=== PATIENT | male | born 1940 | race Caucasian/White ===

== ENCOUNTER 2016-04-14 14:25 | Inpatient (IN) | payer OTHER ==
[~2016-04-14] VITALS: Ht 175.3 cm; Wt 102.3 kg
--- NOTE | ~2016-04-14 | HC ---
[facility] [place] [address] CONSULTATION Name: FER TAN Room #: 435-P [facility] IN ..#: [id number] Admission: 04/14/16 Attend Phys: Reyes Vera MD Discharge: 04/21/16 Date of : 42 Report #: [id number] THIS REPORT FOR: //name// CC: Reyes Vera DATE OF SERVICE: 04/19/2016 HISTORY OF PRESENT ILLNESS: The patient is a 76-year-old white male who was admitted with progressive respiratory failure, noted to have an exacerbation of rheumatoid arthritis. He is very hypoxic with any activity. Pulmonary medicine is closely involved. He is noted to have persistent infiltrates bilaterally and is thought to have rheumatoid arthritis-associated inflammatory lung disease. He has problems with hypoxic respiratory failure. He is on high-dose corticosteroids. There was discussion of using Remicade. He has limited tolerance for activity, and we are seeing him in rehabilitation medicine consultation. PAST MEDICAL HISTORY AND PAST SURGICAL HISTORY: Includes a long history of rheumatoid arthritis. 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 Grissom. A history of colon cancer, status post partial colectomy 1999. He has had bilateral total knee replacements. HABITS: Tobacco a pack per day for 10 years, quit more than 20 years ago. ALLERGIES: None. MEDICATIONS: Please see the full medication listing. 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 FAMILY HISTORY: Includes CVA in his father who has . SOCIAL HISTORY: He lives with his . House, there is one step in and then another eight steps to get up to where the bedroom and bathroom are. The notes it is a trilevel. He was a premorbid household ambulator, did not utilize gait aids. He was on nasal prong O2, approximately 3-4 liters prior to his admission. He was able to ambulate household distances and do his own ADLs. The is home much of the time, although she does work parttime around 13 hours per week doing some healthcare assistance out of the home. She is typically gone on . REVIEW OF SYSTEMS: Did not offer any current complaints of chest pain, shortness of breath or abdominal discomfort at rest. He notes significant increased shortness of breath with any activity. PHYSICAL EXAMINATION: GENERAL: A 76-year-old white male, no obvious distress. He is currently on [address] [place] [id number] CONSULTATION Name: FER TAN Room #: 435-P [facility] IN ..#: [id number] Admission: 04/14/16 Attend Phys: Reyes Vera MD Discharge: 04/21/16 Date of : 42 Report #: [id number] [id number] nasal cannula. VITAL SIGNS: Last recorded temperature 97.8, pulse 53, respirations 20 and blood pressure 147/68. He was alert, oriented and appropriate. HEENT: Appeared to be benign. NEUROLOGIC: He has functional range of motion of both upper extremities with strength probably a grade 4+/5. DTRs are trace to 1. Lower extremities, no focal calf swelling. Strength is grade 4+/5. Bilateral knee incisions are intact. He is contact guard for sit to stand. He could ambulate 8 feet contact guard 4-wheeled walker on 5 liters. ASSESSMENT: A 76-year-old white male with the following problem list: 1. 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 2. Jrwnn-fs-miicnet hypoxic respiratory failure, on 5 liters. 3. Diffuse pulmonary infiltrates. 4. Pulmonary hypertension. 5. Chronic history of rheumatoid arthritis. 6. History of colectomy. 7. Bilateral total knee replacements. PLAN: The patient's main limiting factor is his hypoxia with limited activity. Therapies are to continue working with him. Continuing with the systemic steroids. No discussion regarding possible Remicade. He certainly may be a candidate for an acute in-hospital inpatient rehabilitation stay to further improve his strength and endurance and to achieve a point where he can return back to the home setting. At this point, we will continue to follow along with you regarding his rehab therapy needs. <ELECTRONICALLY SIGNED> By: Dutch Ulloa MD 05/10/16 1605 1200 1605 Dutch Ulloa MD /nt
--- NOTE | ~2016-04-14 | EKG ---
[address] [place] [address] ELECTROCARDIOGRAM REPORT Name: FER TAN Room #: 435-P ADM IN M.R.#: [id number] Admission: 04/14/16 Attend Phys: Reyes Vera MD Discharge: Date of : 42 Report #: [id number] THIS REPORT FOR: //name// 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1940 Requested By: Izabel Darby Order Number: [id number] MD: Michael Sosa Measurements Intervals [place] Rate: 63 P: 4 [place]: 121 QRS: -52 QRSD: 100 T: -13 QT: 421 QTc: 431 Interpretive Statements Sinus rhythm Left ventricular hypertrophy Inferior infarct, old Anterior Q waves, possibly due to LVH Baseline wander in lead(s) III,aVF No previous ECG available for comparison Electronically Signed On 04-15-2016 11:12:02 MAT MAKER by Michael Sosa [email or web address] <ELECTRONICALLY SIGNED> By: Michael Sosa MD 04/15/16 1112 1429 1429 Michael Sosa MD /EPI
--- NOTE | ~2016-04-14 | H ---
[facility] [place] [address] HISTORY AND PHYSICAL Name: FER TAN Room #: 435-P [facility] IN M.R.#: [id number] Admission: 04/14/16 Attend Phys: Reyes Vera MD Discharge: 04/21/16 Date of : 42 Report #: [id number] THIS REPORT FOR: //name// CC: Reyes Vera DATE OF SERVICE: 04/14/2016 CHIEF COMPLAINT: Shortness of air. HISTORY OF PRESENT ILLNESS: The patient is a 76-year-old male well known to me with an underlying history of rheumatoid arthritis and rheumatoid lung disease who had been getting significantly worse in the past few weeks. Dr. Rodriguez had recommended he come to the hospital for evaluation of the progression of his pulmonary disease. The patient was more short of breath on the day of admission. PAST MEDICAL HISTORY: Significant for: 1. Rheumatoid arthritis. 2. Pulmonary fibrosis. 3. Coronary artery disease. 4. Hyperlipidemia. 5. DJD. MEDICATIONS: Include Xanax 0.5 p.r.n., Celebrex 200 mg b.i.d., Plaquenil 200 mg b.i.d., Acyclovir 400 mg a day, folic acid daily, metoprolol 50 mg a day, Proscar 5 mg a day, Zyrtec 10 mg a day, prednisone 20 mg t.i.d. and morphine 15 mg b.i.d. ALLERGIES: No known drug allergies. SOCIAL HISTORY: Nonsmoker, nondrinker and no recreational drugs. REVIEW OF SYSTEMS: CONSTITUTIONAL: No fever or chills. He is positive for the shortness of breath and malaise. HEENT: No headaches or visual changes. CHEST: Shortness of breath and cough. GASTROINTESTINAL: No nausea, vomiting or diarrhea. GENITOURINARY: No burning or frequency. EXTREMITIES: No new joint pain or swelling. OBJECTIVE: VITAL SIGNS: In the ER, blood pressure was 182/75, his pulse was 83 and respiratory rate 18. He was on 5 liters of O2. GENERAL: He was dyspneic and in mild distress. HEENT: His mucous membranes were dry. [facility] [address] [place] [address] HISTORY AND PHYSICAL Name: FER TAN Room #: 435-P [facility] IN [facility].#: [id number] Admission: 04/14/16 Attend Phys: Reyes Vera MD Discharge: 04/21/16 Date of : 42 Report #: [id number] NECK: Supple, without adenopathy, thyromegaly or bruits. CHEST: Showed bilateral diffuse crackles and wheezes. CARDIOVASCULAR: Regular rhythm without murmur. ABDOMEN: Soft, no masses. Bowel sounds were active. EXTREMITIES: Showed no edema. LABORATORY EVALUATION: EKG showed a sinus rhythm with a rate of 63, no ST segment changes. His ABG; pH 7.45, pCO2 of 33, pO2 of 59. Lactate level 1.4, sodium 136, potassium 4.1, chloride 99, bicarbonate 30, BUN 20, creatinine 1.2 and glucose 79. BNP 582. WBC 11.6, hemoglobin 17.9, hematocrit 52.6 and platelet count 163 with 68 segs, 1 band and 13 lymphs. Chest x-ray shows decreased inspiratory effort with diffuse interstitial prominence. CT angiogram of the chest shows no pulmonary emboli but significant bilateral interstitial pneumonia with congestive pulmonary failure. ASSESSMENT: Respiratory distress, hypoxia, pneumonia and rheumatoid lung. PLAN: We will admit and start on high dose IV steroids. Consult pulmonary, breathing treatments and IV antibiotics. We will renew his home meds for his pain control. Renew his home meds for anxiety. <ELECTRONICALLY SIGNED> By: Reyes Vera MD 04/25/16 1632 1632 1751 Reyes Vera MD /nt
--- NOTE | ~2016-04-14 | 2DMMODE ---
[facility] [place] [address] 2 D/M-MODE ECHOCARDIOGRAM Name: FER TAN Room #: 435-P [facility] IN .#: [id number] Admission: 04/14/16 Attend Phys: Reyes Vera, Discharge: Date of : 42 Date of Service: 04/15/16 0927 Report #: [id number] THIS REPORT FOR: //name// Transthoracic Echocardiography Ordering physician: Reyes Vera Referring physician: Reyes Vera Manpower Development Advisor: LETICIA Kent Indications/History: Dyspnea, HLP. BP: 152 / HR: 67bpm Height: 69in Weight: 224.5lb 89 Study data: M-mode, complete 2D, complete spectral Doppler, and color Doppler. Location: Bedside. Routine. Image quality was good. 2D measurements Normal Normal LVID ED 46.5mm 36-57 IVS ED 11.7mm 6-11 LVID ES 30.6mm 23-40 LVPW ED 12.5mm 6-11 LA volume 21ml/m2 16-28 AoRoot diam 33.2mm 21-37 index ED LVOT diameter 22mm 18-23 Findings: Left ventricle: The cavity size was normal. Wall thickness was increased in a pattern of mild LVH. Systolic function was normal. The estimated ejection fraction was in the range of 55% to 60%. Wall motion was normal. Right ventricle: The cavity size was normal. Systolic function was normal. Right atrium: The atrium was normal in size. Left atrium: The atrium was normal in size. Volume index: 21ml/m2 (S). Aortic valve: Trileaflet; mildly calcified leaflets. Doppler: There was no stenosis. Trivial regurgitation. Peak velocity: 99.3cm/s (S). Mitral valve: Structurally normal valve. Doppler: [facility] [address] [place] [address] 2 D/M-MODE ECHOCARDIOGRAM Name: FER TAN Room #: 435-P [facility] IN [place]#: [id number] Admission: 04/14/16 Attend Phys: Reyes DimasNaheed Chuy, Discharge: Date of : 42 Date of Service: 04/15/16926 Report #: [id number] There was no evidence for stenosis. No regurgitation. Peak E-wave velocity: 49.8cm/s. Peak A-wave velocity: 80.6cm/s. Tricuspid valve: Structurally normal valve. Doppler: There was no evidence for stenosis. Mild regurgitation. Regurgitant peak velocity: 298.7cm/s. Peak RV-RA gradient: 36mm Hg (S). Pulmonic valve: Structurally normal valve. Doppler: There was no evidence for stenosis. No regurgitation. Pericardium: There was no pericardial effusion. Aorta: Aortic root: The aortic root was normal in size. Pulmonary artery: Systolic pressure was estimated to be 46mm Hg. Plus the right atrial pressure. Diastolic function: Doppler parameters are consistent with abnormal left ventricular relaxation (grade 1 diastolic dysfunction). Systemic veins: Inferior vena cava: Not visualized. Conclusions 1. Left ventricle: The cavity size was normal. Wall thickness was increased in a pattern of mild LVH. Systolic function was normal. The estimated ejection fraction was in the range of 55% to 60%. 2. Aortic valve: Trileaflet; mildly calcified leaflets. Trivial regurgitation. 3. Mitral valve: Structurally normal valve. 4. Tricuspid valve: Mild regurgitation. 5. Pulmonary arteries: Systolic pressure was estimated to be 46mm Hg. <ELECTRONICALLY SIGNED> By: Austin Page MD 04/15/16 5965 0927 142 Austin Page MD /ray
--- NOTE | ~2016-04-14 | HC ---
[facility] [place] [address] CONSULTATION Name: FER TAN Room #: 435-P [facility] IN .R.#: [id number] Admission: 04/14/16 Attend Phys: Reyes eVra MD Discharge: 04/21/16 Date of : 42 Report #: [id number] THIS REPORT FOR: //name// CC: Reyes Vera DATE OF SERVICE: 04/14/2016 PRIMARY CARE PHYSICIAN: Dr. Reyes Vera REASON FOR REFERRAL: Progressive respiratory failure. HISTORY OF PRESENT ILLNESS: The patient is a 76-year-old white male who has been admitted for progressive hypoxia and dyspnea. A pulmonary consultation was requested. The patient was diagnosed with rheumatoid arthritis several years ago. He has known pulmonary involvement from his rheumatoid arthritis. CT imaging performed a few weeks ago showed moderate bilateral interstitial fibrosis. For the past few weeks, he has had significant worsening of his dyspnea and hypoxia. He was given prednisone 60 mg once a day. He had been on methotrexate. Despite this, his symptoms worsened, and he presented in the hospital. CT imaging of the chest showed bilateral interstitial infiltrates. This is new when compared to his prior chest CT performed on 03/24/2016. Of note, the patient had no fever, no productive cough or purulent sputum. For his rheumatoid arthritis, the patient had been on methotrexate on and off for the past year and a half. He is currently on Plaquenil. Otherwise, denies any chest pain, hemoptysis, nausea, vomiting or diarrhea. The patient has smoked about a pack a day for 10 years, quit more than 20 years ago. He denies any alcohol use. 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 He has allergies along with history of colon cancer. PAST SURGICAL HISTORY: Status post partial colectomy in 1999 and bilateral knee surgery. ALLERGIES: None. [facility] [address] [place] [address] CONSULTATION Name: FER TAN Room #: 435-P [facility]#: [id number] Admission: 04/14/16 Attend Phys: Reyes Vera MD Discharge: 04/21/16 Date of : 42 Report #: [id number] HOME MEDICATIONS: As mentioned above including alprazolam; Celebrex; multivitamins; metoprolol; cetirizine; methotrexate, which has been on hold; Humira and prednisone 60 mg once a day, which was recently started. FAMILY HISTORY: Remarkable for CVA in the father who has . Mother at 91 years of age. He has 1 living child. SOCIAL HISTORY: He is . He is retired from ____. Denies any occupational exposure, industrial dust or toxin . REVIEW OF SYSTEMS: As mentioned above, otherwise 10-point system reviewed and negative. PHYSICAL EXAMINATION: GENERAL: He is awake, alert, in moderate respiratory distress. VITAL SIGNS: Temperature is 98 degrees Fahrenheit, pulse is 80, respiratory rate is 24, blood pressure is 139/83 mmHg and saturation 93%. HEENT: Normocephalic, atraumatic. NECK: Supple without any lymphadenopathy or thyromegaly. CHEST: Breath sounds are fair with bilateral crackles. No wheezes. CARDIOVASCULAR: Normal S1, S2. There are no murmurs or gallop. There is no JVD. There is no carotid bruit. Pulses are 2+/4+ bilaterally. ABDOMEN: Soft, nontender, no organomegaly or masses felt. EXTREMITIES: There is no edema, cyanosis or clubbing. LABORATORY DATA: CT chest as mentioned above. Echocardiogram performed earlier today showed ejection fraction approximately 55%, mild aortic regurgitation, normal mitral valve, pulmonary artery pressure measuring 46 mmHg. Chest x-ray shows extensive bilateral interstitial infiltrates, troponin was normal. BNP is 582. Of note, CT chest angiogram was performed which showed no evidence of pulmonary embolus. Sodium was 132, potassium 4.3, chloride 97, CO2 is 29, BUN is 27 and creatinine is 1.3. WBC 11,600, hemoglobin is 17.9, platelets normal and eosinophil count is high at 5%. No bandemia. Arterial blood gas revealed pH 7.45, pCO2 at 33 and pO2 of 59 on 5 liters of O2. IMPRESSION: 1. Progressive respiratory distress in this 76-year-old white male with long history of rheumatoid arthritis, now with extensive bilateral interstitial infiltrates. He has known pulmonary involvement of his rheumatoid arthritis. According to the patient, he has not had any fever, no productive cough or purulent sputum. The radiographic abnormality is likely related to exacerbation of his rheumatoid arthritis, involvement of his lung. However, cannot rule out pneumonia such as atypical pneumonia including viral. 2. Rheumatoid arthritis with pulmonary involvement as mentioned above. [facility] [address] [place] [address] CONSULTATION Name: FER TAN Room #: 435-P [facility] IN M.R.#: [id number] Admission: 04/14/16 Attend Phys: Reyes Vera MD Discharge: 04/21/16 Date of : 42 Report #: [id number] 3. Borderline polycythemia, probably related to hypoxia. RECOMMENDATION: Agree with broad-spectrum antibiotics. We will start corticosteroids at high dose for presumed exacerbation of his rheumatoid arthritis. Wean O2 for saturation 90%. He may require noninvasive positive pressure ventilation. The patient at this time desired full-code blue. If his pulmonary condition deteriorates, he may benefit from ICU transfer. DVT and GI prophylaxis will be addressed. I had a detailed discussion with the patient regarding above findings. He voices understanding. Also discussed with his . All questions were answered. Thank you for the consultation. <ELECTRONICALLY SIGNED> By: Иван Tidwell MD 04/29/16 1634 1607 0435 Иван Tidwell MD /nt
[2016-04-14 14:26] VITALS: BP 182/75
[2016-04-14 15:04] LABS: ABG SAMPLE TYPE ARTERIAL; BE(vivo) -0.1 mmol/L (-2 to +3); HCO3 22.9 mmol/L (22.0-26.0); LACTATE 1.41 mmol/L (0.5-2.0); O2(CT) 21.8 mL/dL (15.0-23.0); O2Hb 91.4 % (92.0-98.0); PCO2 33.1 mmHg (35.0-45.0); PO2 59.6 mmHg (80.0-100.0); STICK SITE R.RADIAL; pH 7.457 (7.360-7.450); sO2 92.3 % (92.0-98.0); tCO2 23.9 mmol/L (24.0-30.0)
[2016-04-14 15:56] LABS: HEMATOCRIT 52.6 % (42.0-52.0); HEMOGLOBIN 17.9 gm/dL (14.0-18.0); MCH 33.4 pg (26.0-34.0); MCHC 34.1 % (28.0-37.0); MCV 97.9 fL (80.0-100.0); PLATELET COUNT 163 thou/uL (150-400); RBC 5.38 mil/uL (4.50-6.00); RDW 15.4 % (10.5-14.5); WBC 11.6 thou/uL (4.0-11.0)
[2016-04-14 16:00] LABS: CALCIUM 9.7 mg/dL (8.5-10.1); CREATININE 1.2 mg/dL (0.6-1.3); POTASSIUM 4.1 mmol/L (3.5-5.1)
[2016-04-14 16:01] LABS: MANUAL DIFF YES
[2016-04-14 16:18] LABS: TOTAL CELL COUNT 100
[2016-04-14 16:20] LABS: ANISOCYTOSIS 1+
[2016-04-14] MEDS ORDERED: XANAX 0.5 MG0.5 MG PO (16:47)
[2016-04-14] MEDS ORDERED: CELEBREX 200 M200 M1 PO (16:48)
[2016-04-14] MEDS ORDERED: HYDROXYCHLOROQ200 M1 PO (16:50)
[2016-04-14] MEDS ORDERED: ACYCLOVIR 400400 MG PO (16:50)
[2016-04-14] MEDS ORDERED: METOPROLOL SUCC50 MG PO (16:51)
[2016-04-14] MEDS ORDERED: FOLIC ACID1 MG PO (16:51)
[2016-04-14] MEDS ORDERED: ALL DAY ALLERGY10 M3 PO (16:52)
[2016-04-14] MEDS ORDERED: PROSCAR 5MG TABL5 MG PO (16:52)
[2016-04-14] MEDS ORDERED: PREDNISONE 20 M20 MG PO (16:53)
[2016-04-14] MEDS ORDERED: MS CONTIN15 MG PO (16:54)
[2016-04-14 17:13] VITALS: BP 156/75
[2016-04-14 17:40] VITALS: BP 173/91
[2016-04-14 18:59] LABS: CALCIUM 8.8 mg/dL (8.5-10.1); CREATININE 1.3 mg/dL (0.6-1.3); MAGNESIUM 1.8 mg/dL (1.8-2.4); POTASSIUM 4.5 mmol/L (3.5-5.1)
[2016-04-14 19:35] VITALS: BP 156/76
[2016-04-14 23:28] VITALS: BP 148/94
[2016-04-15 04:58] VITALS: BP 146/80
[2016-04-15 05:46] LABS: HEMATOCRIT 46.7 % (42.0-52.0); MCH 33.2 pg (26.0-34.0); MCHC 33.9 % (28.0-37.0); MCV 97.9 fL (80.0-100.0); RBC 4.78 mil/uL (4.50-6.00); RDW 15.3 % (10.5-14.5); WBC 5.3 thou/uL (4.0-11.0)
[2016-04-15 05:47] LABS: HEMOGLOBIN 15.9 gm/dL (14.0-18.0)
[2016-04-15 05:56] LABS: CALCIUM 8.7 mg/dL (8.5-10.1); CREATININE 1.3 mg/dL (0.6-1.3); POTASSIUM 4.3 mmol/L (3.5-5.1)
[2016-04-15 08:32] VITALS: BP 152/89
[2016-04-15 12:14] VITALS: BP 139/83
[2016-04-15 16:17] VITALS: BP 145/71
[2016-04-15 19:48] VITALS: BP 137/77
[2016-04-16 03:38] VITALS: BP 134/69
[2016-04-16 04:23] LABS: HEMATOCRIT 45.3 % (42.0-52.0); HEMOGLOBIN 15.2 gm/dL (14.0-18.0); MCH 32.7 pg (26.0-34.0); MCHC 33.6 % (28.0-37.0); MCV 97.3 fL (80.0-100.0); RBC 4.65 mil/uL (4.50-6.00); RDW 14.9 % (10.5-14.5); WBC 15.9 thou/uL (4.0-11.0)
[2016-04-16 04:40] LABS: CALCIUM 8.8 mg/dL (8.5-10.1); CREATININE 1.4 mg/dL (0.6-1.3); POTASSIUM 3.9 mmol/L (3.5-5.1)
[2016-04-16 08:00] VITALS: BP 136/71
[2016-04-16 12:00] VITALS: BP 132/64
[2016-04-16 16:00] VITALS: BP 150/75
[2016-04-16 19:33] VITALS: BP 154/74
[2016-04-17 05:46] VITALS: BP 133/62
[2016-04-17 06:30] LABS: CALCIUM 8.7 mg/dL (8.5-10.1); CREATININE 1.2 mg/dL (0.6-1.3); POTASSIUM 4.4 mmol/L (3.5-5.1)
[2016-04-17 08:00] VITALS: BP 143/69
[2016-04-17 12:00] VITALS: BP 131/62
[2016-04-17 16:00] VITALS: BP 143/61
[2016-04-17 20:57] VITALS: BP 139/58
[2016-04-18 08:00] VITALS: BP 152/73
[2016-04-18 11:44] VITALS: BP 142/65
[2016-04-18 15:18] VITALS: BP 145/69
[2016-04-18 20:52] VITALS: BP 128/47
[2016-04-19 04:30] VITALS: BP 136/60
[2016-04-19 08:00] VITALS: BP 147/68
[2016-04-19 12:00] VITALS: BP 142/65
[2016-04-19 16:00] VITALS: BP 152/66
[2016-04-19 19:25] VITALS: BP 152/66
[2016-04-20 03:30] VITALS: BP 152/71
[2016-04-20 06:13] LABS: HEMATOCRIT 44.6 % (42.0-52.0); HEMOGLOBIN 15.1 gm/dL (14.0-18.0); MCH 33.4 pg (26.0-34.0); MCV 98.3 fL (80.0-100.0); RBC 4.53 mil/uL (4.50-6.00); WBC 10.2 thou/uL (4.0-11.0)
[2016-04-20 06:21] LABS: CALCIUM 8.4 mg/dL (8.5-10.1)
[2016-04-20 08:00] VITALS: BP 138/65
[2016-04-20 12:00] VITALS: BP 162/72
[2016-04-20 15:43] VITALS: BP 149/76
[2016-04-20 19:30] VITALS: BP 142/56
[2016-04-21 05:30] VITALS: BP 135/61
[2016-04-21 07:59] VITALS: BP 148/67
[2016-04-21 08:09] LABS: INFLUENZA B Negative (Negative); METAPNEUMOVIRUS Negative (Negative)
[2016-04-21 08:51] VITALS: BP 148/67
[2016-04-22 09:09] LABS: NIL (NEGATIVE) CONTROL SPOT CT 0; PANEL A SPOT CT 0; PANEL B SPOT CT 0; T-SPOT.TB Negative
[2016-04-22 09:10] LABS: POSITIVE CONTROL SPOT COUNT > 20
== END 2016-04-21 11:15 | DRG 193 ==
LOC: ER 14:25 → 4S 16:10 → EROBS 16:10 → 4S 17:23
PROVIDERS: Emergency Medicine; Family Medicine; Internal Medicine Pulmonary Disease
DX: J18.9 Pneumonia, unspecified organism (principal); J96.21 Acute and chronic respiratory failure with hypoxia; R65.11 Systemic inflammatory response syndrome (SIRS) of non-infectious origin with acute organ dysfunction; N17.9 Acute kidney failure, unspecified; Z96.653 Presence of artificial knee joint, bilateral; G89.4 Chronic pain syndrome; I27.2 Other secondary pulmonary hypertension; J84.10 Pulmonary fibrosis, unspecified; I25.10 Atherosclerotic heart disease of native coronary artery without angina pectoris; E78.5 Hyperlipidemia, unspecified; I10 Essential (primary) hypertension; E78.00 Pure hypercholesterolemia, unspecified; M06.9 Rheumatoid arthritis, unspecified; Z90.49 Acquired absence of other specified parts of digestive tract; Z98.890 Other specified postprocedural states; Z82.3 Family history of stroke; Z79.899 Other long term (current) drug therapy; Z79.2 Long term (current) use of antibiotics; Z23 Encounter for immunization
CPT/HCPCS: 10100

== ENCOUNTER 2016-04-21 11:28 | Inpatient (IN) | payer OTHER ==
[~2016-04-21] VITALS: Ht 172.7 cm; Wt 107.0 kg
--- NOTE | ~2016-04-21 | D ---
[facility] [place] [address] DISCHARGE SUMMARY Name: FER TAN Room #: 514-P [facility] IN .R.#: [id number] Admission: 04/21/16 Attend Phys: Dutch Ulloa MD Discharge: 04/23/16 Date of : 41 Report #: [id number] THIS REPORT FOR: //name// CC: Dutch Davisdora Vera DATE OF SERVICE: 04/23/2016 The patient is a 76-year-old white male who was admitted to [facility] with progressive respiratory failure, noted to have an exacerbation of rheumatoid arthritis. He was diagnosed with rheumatoid arthritis with associated inflammatory lung disease. The patient was noted to have acute on chronic hypoxic respiratory failure with diffuse pulmonary infiltrates, pulmonary hypertension and history of chronic rheumatoid arthritis. He was working in therapies and was felt to be ready for transfer for acute in-hospital inpatient rehabilitation. Transfers were at a min assist level and he was able to take a few steps with min assist. He was admitted for acute in-hospital inpatient rehabilitation. Please see the full admission note dictation. HOSPITAL COURSE: While working in therapies, he became increasingly short of breath and feeling lethargic. Staff had increased his oxygen to 6 liters and added a nonrebreather due to SPO2 in the low 80s. He was placed on a facemask, given IV Lasix, was transferred off the rehab villeda for closer medical monitoring. DISCHARGE DIAGNOSES: 1. 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 2. Acute on chronic hypoxic respiratory failure, now with worsened pulmonary condition. 3. Diffuse pulmonary infiltrates. 4. Pulmonary hypertension. 5. History of chronic rheumatoid arthritis. 6. History of colectomy. 7. Bilateral total knee replacements. PLAN: The patient was discharged back to the acute care hospital for more close medical and pulmonary management. Defer further medication management, activity, etc. as per the accepting service. The patient was discharged on 04/23/2016. <ELECTRONICALLY SIGNED> By: Dutch Ulloa MD 05/10/16 1617 1056 1219 Dtuch Ulloa MD /nt
--- NOTE | ~2016-04-21 | H ---
[facility] [place] [address] HISTORY AND PHYSICAL Name: FER TAN Room #: 514-P [facility] IN .R.#: [id number] Admission: 04/21/16 Attend Phys: Dutch Ulloa MD Discharge: 04/23/16 Date of : 42 Report #: [id number] THIS REPORT FOR: //name// CC: Dutch Vera DATE OF SERVICE: 04/22/2016 HISTORY OF PRESENT ILLNESS: The patient is a 76-year-old white male who was originally admitted to [facility] with progressive respiratory failure, noted to have an exacerbation of rheumatoid arthritis. He was having problems with becoming very hypoxic with any activity. Pulmonary medicine has been closely involved. 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 He has problems with hypoxic respiratory failure. He was placed on high dose corticosteroids. The patient received outpatient Remicade as per Rheumatology and has now been transferred for acute in-hospital inpatient rehabilitation to try to maximize his functional mobility and ADL independence. PAST MEDICAL HISTORY: Includes a long history of rheumatoid arthritis. 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 Grissom. He has history of colon cancer, status post partial colectomy in 1999. He has had bilateral total knee replacements. HABITS: Tobacco 1 pack per day for 10 years, quit more than 20 years ago. ALLERGIES: No known drug allergies. MEDICATIONS: Please see the full medication listing. Notes he had been on methotrexate, which had given him care home improvement as far as his pulmonary condition premorbidly. FAMILY HISTORY: Includes a CVA in his father who has . SOCIAL HISTORY: Lives with his . He lives in a house. There is 1 step in and then another 8 steps to get up to way to bedroom and. The noted it was a tri-level. He was a premorbid household ambulator, did not utilize gait aids. He was on nasal prong O2, approximately 3-4 liters just prior to this admission. He was able to ambulate household distances and do his own ADLs. His was noted to be home much of the time, although she does work history department chair around 13 hours per week, doing some healthcare assistance out of the home. She is typically gone on . REVIEW OF SYSTEMS: No current complaints of chest pain, shortness of breath, abdominal discomfort. He does have significant shortness of breath with activity. [address] [address] HISTORY AND PHYSICAL Name: FER TAN Room #: 514-P DIS IN ..#: [id number] Admission: 04/21/16 Attend Phys: Dutch Ulloa MD Discharge: 04/23/16 Date of : 42 Report #: [id number] PHYSICAL EXAMINATION: GENERAL: A 76-year-old white male in no obvious distress. VITAL SIGNS: Last recorded temperature 97.7, pulse 54, respirations 24, blood pressure 158/81. He is alert. He is currently on 5.5 liters and has been up to 6 liters nasal prong O2. Facies appeared to be symmetric. Last recorded temperature 97.7, pulse 54, respirations 24, blood pressure 158/81. Facies are symmetric. He is a good historian. CHEST: Some decreased diffuse breath sounds. CARDIAC: Sounded regular rate and rhythm. ABDOMEN: Bowel sounds positive, nontender. GENITOURINARY AND RECTAL: Deferred. EXTREMITIES: He has functional range of motion of both upper extremities with strength a grade 4-/5 to 4/5. DTRs are trace to 1. LOWER EXTREMITIES: No focal calf swelling. Bilateral knee incisions are intact. Strength is probably a grade 4-/5. He tends to fatigue quickly. ASSESSMENT: A 76-year-old white male with the following problem list: 1. 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 2. Acute on chronic hypoxic respiratory failure, on 5.5 liters currently. 3. Diffuse pulmonary infiltrates. 4. Pulmonary hypertension. 5. History of chronic rheumatoid arthritis. 6. History of colectomy. 7. Bilateral total knee replacements. PLAN: The patient is admitted for acute in-hospital inpatient rehabilitation. From a postadmission physician evaluation perspective, there are no relevant changes since the preadmission screening. Please see the above review of prior and current medical and functional conditions and comorbidities. Please see the patient's prior and current functional status. As far as risk of complications, he does have multiple medical comorbidities as noted above. Initial plan of care involves the interdisciplinary acute inpatient rehabilitation program with the goal of maximizing the patient's functional independence. Measurable functional goals would be for the patient to gradually improve his strength, mobility and ADLs, so that he can return back to the home setting. Prognosis is reasonably good with estimated length of stay probably around 2-3 weeks pending progress. He is at a lower functional level. Potential barriers would include his multiple medical comorbidities and decreased functional status. The patient meets diagnostic criteria for an acute in-hospital inpatient rehabilitation stay. He meets medical necessity criteria. He does have [facility] [address] [place] [address] HISTORY AND PHYSICAL Name: FER TAN Room #: 514-P DIS IN M.R.#: [id number] Admission: 04/21/16 Attend Phys: Dutch Ulloa MD Discharge: 04/23/16 Date of : 42 Report #: [id number] tolerance for therapies and has appropriate discharge goals back to the home setting. <ELECTRONICALLY SIGNED> By: Dutch Ulloa MD 05/10/16 1617 0947 1115 Dutch Ulloa MD /nt
[~2016-04-21 11:28] MED LIST: ACYCLOVIR 400400 MG PO; ALL DAY ALLERGY10 M3 PO; CELEBREX 200 M200 M1 PO; FOLIC ACID1 MG PO; HYDROXYCHLOROQ200 M1 PO; METOPROLOL SUCC50 MG PO; MS CONTIN15 MG PO; PREDNISONE 20 M20 MG PO; PROSCAR 5MG TABL5 MG PO; XANAX 0.5 MG0.5 MG PO
[2016-04-21 15:45] VITALS: BP 164/95
[2016-04-22 04:40] LABS: HEMATOCRIT 45.8 % (42.0-52.0); HEMOGLOBIN 15.2 gm/dL (14.0-18.0); MCH 32.8 pg (26.0-34.0); MCHC 33.1 % (28.0-37.0); MCV 99.1 fL (80.0-100.0); RBC 4.62 mil/uL (4.50-6.00); RDW 14.9 % (10.5-14.5); WBC 11.6 thou/uL (4.0-11.0)
[2016-04-22 05:01] LABS: CALCIUM 8.6 mg/dL (8.5-10.1); POTASSIUM 5.2 mmol/L (3.5-5.1)
[2016-04-22 05:21] VITALS: BP 158/81
[2016-04-22 16:00] VITALS: BP 140/69
[2016-04-23 05:06] VITALS: BP 167/79
[2016-04-23 11:00] VITALS: BP 180/110
[2016-04-23 11:41] LABS: ABG SAMPLE TYPE ARTERIAL; BE(vivo) 3.5 mmol/L (-2 to +3); HCO3 27.7 mmol/L (22.0-26.0); LACTATE 1.58 mmol/L (0.5-2.0); O2(CT) 19.9 mL/dL (15.0-23.0); O2Hb 86.6 % (92.0-98.0); PCO2 40.7 mmHg (35.0-45.0); pH 7.451 (7.360-7.450); sO2 87.8 % (92.0-98.0)
[2016-04-23 11:43] LABS: STICK SITE L.BRACHIAL
[2016-04-23] MEDS ORDERED: DUONEB 2.5-0.5 M3 ML INH (12:01)
[2016-04-23] MEDS ORDERED: COLACE 100 MG100 MG PO (12:03)
[2016-04-23] MEDS ORDERED: MILK OF MA2400 MG/10 PO (12:03)
[2016-04-23] MEDS ORDERED: SOLU-MEDRO1000 MG/VI IV (12:05)
[2016-04-23 16:58] LABS: CALCIUM 9.1 mg/dL (8.5-10.1); POTASSIUM 5.4 mmol/L (3.5-5.1)
[2016-04-23 17:03] LABS: ALBUMIN 2.9 g/dL (3.4-5.0); MAGNESIUM 2.1 mg/dL (1.8-2.4); TOTAL PROTEIN 6.9 g/dL (6.4-8.2)
== END 2016-04-23 13:05 | disposition short-term general hospital (02) | DRG 189 ==
PROVIDERS: Nurse Practitioner Acute Care; Physical Medicine & Rehabilitation
DX: J96.21 Acute and chronic respiratory failure with hypoxia (principal); M05.10 Rheumatoid lung disease with rheumatoid arthritis of unspecified site; M06.9 Rheumatoid arthritis, unspecified; I27.2 Other secondary pulmonary hypertension; Z96.653 Presence of artificial knee joint, bilateral; Z82.3 Family history of stroke; Z87.891 Personal history of nicotine dependence; Z90.49 Acquired absence of other specified parts of digestive tract; Z79.899 Other long term (current) drug therapy; R91.8 Other nonspecific abnormal finding of lung field; J98.8 Other specified respiratory disorders
CPT/HCPCS: 10112

== ENCOUNTER 2016-04-23 13:07 | Inpatient (IN) | payer OTHER ==
[~2016-04-23] VITALS: Ht 175.3 cm; Wt 106.3 kg
[2016-04-23] VITALS (16 sets, daily range): BP systolic 132–178; BP diastolic 80–140
--- NOTE | ~2016-04-23 | DEA ---
[facility] [place] [address] SUMMARY Name: FER TAN Room #: 237-P [facility] IN M.R.#: [id number] Admission: 04/23/16 Attend Phys: Reyes Vera MD Discharge: 04/30/16 Date of : 42 Report #: [id number] THIS REPORT FOR: //name// CC: Reyes Vera DATE OF SERVICE: 04/30/2016 DATE OF : 04/30/2016. This patient was admitted on 04/23/2016 by from the rehab because of hypoxia, acute respiratory failure and he had multiple medical problems and he was not doing well. He had become a little dyspneic and then, he required 6 liters of oxygen, transferred to ICU and admitted. The patient was in basically to have a decline in his respiratory status. I saw this patient only 1 day on 04/30/2016. That morning, the patient was placed on the BiPAP. He had pneumothorax and just, he was placed the day before in the morning on 04/30/2016, the pneumothorax had gone up to at least 40-50% which has increased. Respiratory status had declined. Discussed the case with Pulmonary also, Dr. Hernandez. The patient has a poor prognosis and the patient's family has finally decided to make him only comfort care at that time and all the comfort measure was initiated per family and the patient's request. The patient basically ultimately . Please see notes in the chart for further details. <ELECTRONICALLY SIGNED> By: Drew Quiroz MD 05/04/16 1354 1323 1830 Drew Quiroz MD /nt
--- NOTE | ~2016-04-23 | HC ---
[facility] [place] [address] CONSULTATION Name: FER TAN Room #: 237-P [facility] IN ..#: [id number] Admission: 04/23/16 Attend Phys: Reyes Vera MD Discharge: Date of : 42 Report #: [id number] THIS REPORT FOR: //name// CC: Reyes Vera DATE OF SERVICE: 04/26/2016 INDICATION: Arrhythmia. HISTORY OF PRESENT ILLNESS: This is a pleasant 76-year-old gentleman admitted with respiratory failure. He was admitted for exacerbation of his underlying pulmonary fibrosis a few weeks ago. He had improved and was transferred to inpatient rehabilitation. However, during physical therapy, the patient decompensated from a respiratory standpoint and he was transferred back to the ICU. On telemetry, he has had nonsustained VT, up to 7 beats. Clinically, asymptomatic with no complaints of chest pain or palpitations. Recent echo revealed normal LV systolic function. He has a prior history CAD, nonobstructive. PAST MEDICAL HISTORY: Rheumatoid arthritis. 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 Remote history of CAD, hypertension, hyperlipidemia, and DJD. CURRENT MEDICATIONS: Include lorazepam, albuterol inhaler, prednisone, nystatin, amlodipine 10 mg daily, metoprolol 50 mg daily, acyclovir, and hydroxychloroquine. ALLERGIES: None. SOCIAL HISTORY: Negative for tobacco use. FAMILY HISTORY: Negative for premature CAD. REVIEW OF SYSTEMS: A full 10-point review of systems was performed. Only the pertinent positives and negatives are described in the HPI. PHYSICAL EXAMINATION: VITAL SIGNS: Blood pressure 160/80, heart rate is 70-90 beats per minute. GENERAL APPEARANCE: This is a well-developed, well-nourished male, in mild respiratory distress, wearing a BiPAP mask. HEAD AND EYES: Normocephalic. Sclerae are anicteric. ENT: Oral mucosa moist. NECK: Supple. LUNGS: Diminished breath sounds diffusely. CARDIAC: S1, S2 positive. ABDOMEN: Soft, nontender. Bowel sounds positive. [facility] [address] [address] CONSULTATION Name: FER TAN Room #: [facility]- ADM IN M.R.#: [id number] Admission: 04/23/16 Attend Phys: Reyes Vera MD Discharge: Date of : 42 Report #: [id number] EXTREMITIES: No major joint deformities, positive for bilateral lower extremity edema. LABORATORY VALUES: Sodium is 127, BUN is 40, and creatinine is 1.1. White count is 13.0 and hemoglobin is 15.2. ASSESSMENT: 1. Nonsustained ventricular tachycardia, in the setting of normal left ventricular systolic function and respiratory failure from pulmonary disease. He remains clinically asymptomatic. We would continue with conservative therapy. Recommend keeping potassium greater than 4.0. He should continue with beta sheridan. 2. Hypertension, continue with amlodipine. We would consider adding an ARB medication as well. 3. Respiratory failure/pulmonary fibrosis, continue with antibiotics and steroids. 4. Edema, consider gentle diuresis, although he has received Lasix and BUN/creatinine level is elevated. 5. Coronary artery disease, remote history. Clinically stable with no symptoms of angina Thank you for allowing me to participate in the care of your patient. <ELECTRONICALLY SIGNED> By: Luis Cosby MD 04/27/16 0758 0919 1028 Luis Cosby MD /nt
--- NOTE | ~2016-04-23 | EKG ---
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
[~2016-04-23 13:07] MED LIST changes: +COLACE 100 MG100 MG PO; +DUONEB 2.5-0.5 M3 ML INH; +MILK OF MA2400 MG/10 PO; +SOLU-MEDRO1000 MG/VI IV
[2016-04-24] VITALS (38 sets, daily range): BP systolic 121–194; BP diastolic 72–131
[2016-04-24 07:55] LABS: HEMATOCRIT 46.1 % (42.0-52.0); HEMOGLOBIN 15.7 gm/dL (14.0-18.0); MCV 97.1 fL (80.0-100.0); RBC 4.75 mil/uL (4.50-6.00); RDW 14.8 % (10.5-14.5); WBC 8.9 thou/uL (4.0-11.0)
[2016-04-24 08:11] LABS: CALCIUM 8.8 mg/dL (8.5-10.1); POTASSIUM 5.4 mmol/L (3.5-5.1)
[2016-04-25] VITALS (22 sets, daily range): BP systolic 124–189; BP diastolic 66–110
[2016-04-25 05:08] LABS: HEMATOCRIT 44.8 % (42.0-52.0); HEMOGLOBIN 15.2 gm/dL (14.0-18.0); MCHC 33.8 % (28.0-37.0); MCV 97.6 fL (80.0-100.0); RBC 4.59 mil/uL (4.50-6.00); RDW 15.1 % (10.5-14.5)
[2016-04-25 05:29] LABS: CALCIUM 8.7 mg/dL (8.5-10.1); CREATININE 1.1 mg/dL (0.6-1.3); POTASSIUM 4.7 mmol/L (3.5-5.1)
[2016-04-26] VITALS (36 sets, daily range): BP systolic 115–172; BP diastolic 63–114
[2016-04-26 00:31] LABS: ABG SAMPLE TYPE ARTERIAL; BE(vivo) 3.9 mmol/L (-2 to +3); HCO3 29.5 mmol/L (22.0-26.0); LACTATE 2.05 mmol/L (0.5-2.0); O2(CT) 21.8 mL/dL (15.0-23.0); O2Hb 94.5 % (92.0-98.0); PCO2 47.5 mmHg (35.0-45.0); PO2 81.9 mmHg (80.0-100.0); STICK SITE L.RADIAL; pH 7.411 (7.360-7.450); sO2 96.1 % (92.0-98.0)
[2016-04-26 00:32] LABS: FIO2 80 %; Pressure Support 4 cm H20
[2016-04-26 04:31] LABS: CALCIUM 8.9 mg/dL (8.5-10.1); CREATININE 1.1 mg/dL (0.6-1.3); POTASSIUM 5.1 mmol/L (3.5-5.1)
[2016-04-27] VITALS (30 sets, daily range): BP systolic 111–177; BP diastolic 60–125
[2016-04-27 04:01] LABS: HEMATOCRIT 45.9 % (42.0-52.0); HEMOGLOBIN 15.2 gm/dL (14.0-18.0); MCH 32.6 pg (26.0-34.0); MCHC 33.1 % (28.0-37.0); MCV 98.5 fL (80.0-100.0); RBC 4.66 mil/uL (4.50-6.00); RDW 14.6 % (10.5-14.5); WBC 13.3 thou/uL (4.0-11.0)
[2016-04-27 04:11] LABS: CALCIUM 8.8 mg/dL (8.5-10.1); CREATININE 0.9 mg/dL (0.6-1.3); POTASSIUM 5.2 mmol/L (3.5-5.1)
[2016-04-28] VITALS (22 sets, daily range): BP systolic 108–164; BP diastolic 64–146
[2016-04-28 06:10] LABS: ALBUMIN 2.3 g/dL (3.4-5.0); ALKALINE PHOSPHATASE 83 U/L (46-116); ANION GAP < 0 mmol/L (7-16); BUN 41 mg/dL (7-18); CALCIUM 8.7 mg/dL (8.5-10.1); CHLORIDE 99 mmol/L (98-107); CO2 33 mmol/L (21-32); CREATININE 0.9 mg/dL (0.6-1.3); GLUCOSE 174 mg/dL (70-99); MAGNESIUM 2.4 mg/dL (1.8-2.4); PHOSPHORUS 4.1 mg/dL (2.5-4.9); POTASSIUM 5.3 mmol/L (3.5-5.1); SGOT 62 U/L (15-37); SGPT 189 U/L (30-65); SODIUM 131 mmol/L (136-145); TOTAL BILIRUBIN 1.4 mg/dL (<0.1-1.0); TOTAL PROTEIN 5.4 g/dL (6.4-8.2); TRIGLYCERIDE 107 mg/dL (<150)
[2016-04-29] VITALS (28 sets, daily range): BP systolic 124–174; BP diastolic 66–106
[2016-04-29 04:35] LABS: HEMATOCRIT 42.9 % (42.0-52.0); HEMOGLOBIN 14.4 gm/dL (14.0-18.0); MCHC 33.6 % (28.0-37.0); MCV 98.3 fL (80.0-100.0); RBC 4.36 mil/uL (4.50-6.00); RDW 14.9 % (10.5-14.5); WBC 14.6 thou/uL (4.0-11.0)
[2016-04-29 04:50] LABS: CALCIUM 8.6 mg/dL (8.5-10.1); CREATININE 0.8 mg/dL (0.6-1.3); POTASSIUM 5.3 mmol/L (3.5-5.1)
[2016-04-29 07:06] LABS: MAGNESIUM 2.2 mg/dL (1.8-2.4); PHOSPHORUS 3.1 mg/dL (2.5-4.9)
[2016-04-30] VITALS (14 sets, daily range): BP systolic 68–179; BP diastolic 41–112
[2016-04-30 06:31] LABS: HEMOGLOBIN 13.5 gm/dL (14.0-18.0); MCH 34.3 pg (26.0-34.0); RBC 3.93 mil/uL (4.50-6.00)
[2016-04-30 06:32] LABS: MCHC 32.9 % (28.0-37.0); PLATELET COUNT 44 thou/uL (150-400); RDW 15.7 % (10.5-14.5); WBC 14.9 thou/uL (4.0-11.0)
[2016-04-30 06:37] LABS: MCV 104.3 fL (80.0-100.0)
[2016-04-30 06:38] LABS: MANUAL DIFF YES
[2016-04-30 08:01] LABS: CALCIUM 8.8 mg/dL (8.5-10.1); CREATININE 0.8 mg/dL (0.6-1.3); MAGNESIUM 2.3 mg/dL (1.8-2.4); POTASSIUM 5.8 mmol/L (3.5-5.1)
[2016-04-30 09:47] LABS: ABSOLUTE NEUTROPHILS 14.8 thou/uL (1.4-8.2); TOTAL CELL COUNT 100
== END 2016-04-30 13:47 | DRG 189 ==
LOC: 4W 13:41 → ICU 13:41
PROVIDERS: Family Medicine; Internal Medicine; Internal Medicine Pulmonary Disease; Nurse Practitioner Acute Care; Pediatrics Adolescent Medicine
PROC: 5A09557 Assistance with Respiratory Ventilation, Greater than 96 Consecutive Hours, Continuous Positive Airway Pressure (ICD-10-PCS; 2016-04-25)
PROC: 05HA33Z Insertion of Infusion Device into Left Brachial Vein, Percutaneous Approach (ICD-10-PCS; 2016-04-27)
PROC: B54NZZA Ultrasonography of Left Upper Extremity Veins, Guidance (ICD-10-PCS; 2016-04-27)
PROC: 3E0336Z Introduction of Nutritional Substance into Peripheral Vein, Percutaneous Approach (ICD-10-PCS; 2016-04-27)
PROC: 0W9930Z Drainage of Right Pleural Cavity with Drainage Device, Percutaneous Approach (ICD-10-PCS; principal; 2016-04-29)
DX: J96.01 Acute respiratory failure with hypoxia (principal); E43 Unspecified severe protein-calorie malnutrition; J93.9 Pneumothorax, unspecified; I47.2 Ventricular tachycardia; E87.1 Hypo-osmolality and hyponatremia; N17.9 Acute kidney failure, unspecified; M05.10 Rheumatoid lung disease with rheumatoid arthritis of unspecified site; J96.21 Acute and chronic respiratory failure with hypoxia; I10 Essential (primary) hypertension; M06.9 Rheumatoid arthritis, unspecified; I27.2 Other secondary pulmonary hypertension; Z66 Do not resuscitate; I25.10 Atherosclerotic heart disease of native coronary artery without angina pectoris; E78.5 Hyperlipidemia, unspecified; M19.90 Unspecified osteoarthritis, unspecified site; Z68.34 Body mass index [BMI] 34.0-34.9, adult; F41.9 Anxiety disorder, unspecified; Z87.891 Personal history of nicotine dependence; Z90.49 Acquired absence of other specified parts of digestive tract; Z79.899 Other long term (current) drug therapy; Z96.653 Presence of artificial knee joint, bilateral; N40.0 Benign prostatic hyperplasia without lower urinary tract symptoms; E87.5 Hyperkalemia; Z51.5 Encounter for palliative care
CPT/HCPCS: 10078; 10204; 27000